=== PATIENT | male | born 1965 | race Caucasian/White ===

== ENCOUNTER 2020-11-01 09:19 | Emergency (ER) | payer SELFPAY ==
[2020-11-01] MEDS ORDERED: Ampicillin 250 MG VIAL ONE (09:36)
[2020-11-01] MEDS ORDERED: HYDROcodone/Acetaminophen 10/325 mg Tablet ONE (09:36)
[2020-11-01] MEDS ORDERED: Ibuprofen 800 MG TAB ONE (09:36)
[2020-11-01] MEDS ORDERED: AMOXicillin 250 MG CAP ONE (09:37)
== END 2020-11-01 09:42 | disposition home or self-care (01) ==
LOC: BURERS 09:19
DX: K02.9 Dental caries, unspecified (principal); F17.210 Nicotine dependence, cigarettes, uncomplicated
CPT/HCPCS: 99283; J0290

== ENCOUNTER 2021-05-31 17:44 | Emergency (ER) | payer SELFPAY ==
[2021-05-31 19:25] LABS: #Basophils 0.1 thou/uL (0.0-0.2); #Eosinphils 0.1 thou/uL (0.0-0.7); #Lymphocytes 0.5 thou/uL (1.20-3.40); #Monocytes 0.5 thou/uL (0.11-0.59); #Neutrophils 3.9 thou/uL (1.40-6.50); %Basophils 1.1 % (0.0-1.0); %Eosinophils 1.1 % (0.0-10.0); %Lymphocytes 10.5 % (21.0-51.0); %Monocytes 9.4 % (0.0-10.0); %Neutrophils 77.9 % (42.0-75.0); Hemoglobin 17.6 g/dL (14.0-18.0); Mean Corpuscular HGB CONC 34.6 g/dL (32.0-36.0); Mean Corpuscular Hemoglobin 33.6 pg (27.0-31.0); Mean Platelet Volume 8.6 fL (7.4-10.4); Platelet Count 141 thou/uL (130-400); RBC Distribution Width 11.3 % (11.5-14.5); Red Blood Cell (RBC) Count 5.23 mill/uL (4.70-6.10)
[2021-05-31 19:37] LABS: ALT (SGPT) 65 U/L (8-55); AST (SGOT) 143 U/L (5-34); Albumin 3.1 g/dL (3.5-5.0); Alkaline Phosphatase 134 U/L (40-110); Anion Gap 14 mmol/L (10-20); BUN (Urea Nitrogen) 15 mg/dL (8.4-25.7); Bilirubin, Total 2.1 mg/dL (0.2-1.2); Calc. Creatinine Clearance 0 mL/min (70-130); Calcium 9.2 mg/dL (7.8-10.44); Carbon Dioxide 22 mmol/L (22-29); Chloride 98 mmol/L (98-107); Globulin 4.9 g/dL (2.4-3.5); Glucose 117 mg/dL (70-105); Sodium 130 mmol/L (136-145)
[2021-05-31 19:57] LABS: CKMB 3.2 ng/mL (0-6.6)
[2021-05-31] MEDS ORDERED: Fentanyl 100 MCG/2 ML VIAL ONE (20:30)
[2021-05-31 20:49] LABS: SARS-CoV-2 NAA Rapid Test DETECTED (NotDetected)
== END 2021-05-31 21:15 | disposition short-term general hospital (02) ==
LOC: BURERS 17:44
DX: U07.1 COVID-19 (principal); R79.89 Other specified abnormal findings of blood chemistry; J84.10 Pulmonary fibrosis, unspecified; I10 Essential (primary) hypertension; F17.210 Nicotine dependence, cigarettes, uncomplicated
CPT/HCPCS: 71045; 71260; 80053; 82553; 83605; 83880; 84484; 85025; 87040; 87804; 93005; 96374; J3010; U0002